=== PATIENT | female | born 1950 | race Caucasian/White ===

== ENCOUNTER 2016-12-03 07:30 | Inpatient (IN) ==
[2016-11-27 15:21] LABS: Basophils # (Auto) 0 K/mcL (0.0-0.3); Basophils % (Auto) 0.5 % (0.0-2.0); Eosinophils # (Auto) 0.2 K/mcL (0.0-0.7); Eosinophils % (Auto) 4.8 % (0.0-7.0); Granulocytes % (Auto) 53.6 % (38.0-78.0); Lymphocytes # (Auto) 1.5 K/mcL (1.5-4.8); Lymphocytes % (Auto) 31.1 % (15.5-49.0); Mean Cell Volume 97.1 fL (80.0-100.0); Mean Corpuscular HGB Conc 33.5 g/dL (31.0-36.0); Mean Corpuscular Hemoglobin 32.5 pg (26.0-34.0); Monocytes # (Auto) 0.5 K/mcL (0.1-0.9); Platelet Count 275 K/mcL (140-440); RBC 3.68 M/mcL (4.00-5.20); Red Cell Distribution Width 13.3 % (11.5-14.5)
[2016-11-27 15:30] LABS: ALT/SGPT 11 U/l (0-40); Albumin/Globulin Ratio 1.7 (1.0-2.3); Alkaline Phosphatase 94 U/L (39-117); Blood Urea Nitrogen 11 mg/dl (8-23)
[2016-11-27 15:31] LABS: Appearance,Urine CLEAR; Bilirubin,Urine NEG (NEG); Color,Urine YELLOW; Glucose,Urine (UA) NEGATIVE (NEG); Leukocyte Esterase,Urine NEG /uL (NEG); Nitrate,Urine NEG (NEG); Protein,Urine NEG (NEG); Specific Gravity,Urine 1.029 (1.000-1.035); Urine Blood NEG mg/dL (<0.03); Urobilinogen,Urine NEG (NEG)
[2016-12-07] MEDS ORDERED: ceFAZolin 1 GM VIAL IV SCH (05:00)
[2016-12-07] MEDS ORDERED: ACETAMINOPHEN 1,000 MG/100 ML BOTTLE IV ONE (08:48)
[2016-12-07] MEDS ORDERED: HYDROmorphone 2 MG/ML SYRINGE IV ONE (09:25)
[2016-12-07] MEDS ORDERED: DEXAMETHASONE 10 MG/ML VIAL IV ONE (09:25)
[2016-12-07] MEDS ORDERED: PROPOFOL 200 MG/20 ML VIAL IV ONE (09:25)
[2016-12-07] MEDS ORDERED: GLYCOPYRROLATE 0.2 MG/ML VIAL IV ONE (09:25)
[2016-12-07] MEDS ORDERED: PHENYLEPHRINE 10 MG/ML VIAL IV ONE (09:25)
[2016-12-07] MEDS ORDERED: LIDOCAINE HCL/PF 100 MG/5 ML SYRINGE IV ONE (09:25)
[2016-12-07] MEDS ORDERED: MIDAZOLAM 5 MG/5 ML VIAL IV ONE (09:25)
[2016-12-07] MEDS ORDERED: KETAMINE 100 MG/ML ML IV ONE (09:25)
[2016-12-07] MEDS ORDERED: SUCCINYLCHOLINE 20 MG/ML ML IV ONE (09:25)
[2016-12-07] MEDS ORDERED: ONDANSETRON 4 MG/2 ML VIAL IV ONE (09:25)
[2016-12-07] MEDS ORDERED: ePHEDrine 50 MG/ML AMPUL IV ONE (09:25)
[2016-12-07] MEDS ORDERED: fentaNYL 250 MCG/5 ML VIAL IV ONE (09:25)
[2016-12-07] MEDS ORDERED: GELATIN SPONGE,ABSORBABLE 1 GM POWDER TOPICAL ONE (10:09)
[2016-12-07] MEDS ORDERED: THROMBIN (BOVINE) 5,000 UNIT VIAL TOPICAL ONE (10:09)
[2016-12-07] MEDS ORDERED: GELATIN SPONGE,ABSORBABLE 1 EACH SPONGE TOPICAL ONE (10:09)
[2016-12-07] MEDS ORDERED: HEPARIN 20,000 UNIT/ML VIAL IR ONE (10:30)
[2016-12-07] MEDS ORDERED: CALCIUM GLUCONATE 4.65 MEQ/10 ML VIAL TOPICAL ONE (10:30)
[2016-12-07] MEDS ORDERED: diphenhydrAMINE 50 MG/ML VIAL IV PRN (12:26)
[2016-12-07] MEDS ORDERED: NALOXONE HCL 0.4 MG/ML VIAL IV PRN ×2 (12:26→12:43)
[2016-12-07] MEDS ORDERED: HYDROmorphone 2 MG/ML SYRINGE IV PRN (12:26)
[2016-12-07] MEDS ORDERED: LACTATED RINGERS 250 ML IV PRN (12:26)
[2016-12-07] MEDS ORDERED: PROMETHAZINE 25 MG/ML VIAL IV PRN (12:26)
[2016-12-07] MEDS ORDERED: ONDANSETRON 4 MG/2 ML VIAL IV PRN (12:26)
[2016-12-07] MEDS ORDERED: MEPERIDINE 25 MG/ML SYRINGE IV PRN (12:26)
[2016-12-07] MEDS ORDERED: BENZOCAINE/MENTHOL 1 LOZENGE PO PRN (12:26)
[2016-12-07] MEDS ORDERED: METHOCARBAMOL 1,000 MG/10 ML VIAL IV PRN (12:26)
[2016-12-07] MEDS ORDERED: PROMETHAZINE 25 MG/ML VIAL IM PRN (12:26)
[2016-12-07] MEDS ORDERED: fentaNYL 100 MCG/2 ML VIAL IV PRN (12:26)
[2016-12-07] MEDS ORDERED: IPRATROPIUM/ALBUTEROL 3 ML AMPUL.NEB NEB PRN (12:26)
[2016-12-07] MEDS ORDERED: MEPERIDINE 50 MG/ML SYRINGE IM PRN (12:26)
[2016-12-07] MEDS ORDERED: ePHEDrine 50 MG/ML AMPUL IV PRN (12:26)
[2016-12-07] MEDS ORDERED: FLUMAZENIL 0.1 MG/ML ML IV PRN (12:26)
[2016-12-07] MEDS ORDERED: LACTATED RINGERS 1,000 ML IV SCH (12:30)
[2016-12-07] MEDS ORDERED: ALPRAZolam 0.5 MG TABLET PO PRN (12:43)
[2016-12-07] MEDS ORDERED: ONDANSETRON ODT 4 MG TABLET SL PRN (12:43)
--- NOTE | 2016-12-07 12:43 | Brief Operative Note ---
Date of procedure: 12/07/16 Pre-op diagnosis: cevical stenosis Post-op diagnosis: same Procedure: acd and f c4-6 Grafts/Implants: Yes (vg2, synthes) Anesthesia: GETA Complications: none Surgeon: Harjinder Chavarria Ladle Liner Helper: Deng Sutherland Estimated blood loss (cc): 20 Specimens Removed/Pathology: none sent Disposition: PACU
[2016-12-07] MEDS: 0.9 % SODIUM CHLORIDE 10 ML SYRINGE IV SCH ×2 (13:55→22:18)
--- NOTE | 2016-12-07 15:37 | XRay Report ---
CLINICAL INFORMATION: Cervical discectomy COMPARISON: None. FINDINGS: Intraoperative lateral cervical spine view labeled #4 shows anterior plate and screws with interbody grafts at the C4-5 and C5-6 levels. Relationships appear anatomic. IMPRESSION: C4-5 and C5-6 anterior fusion changes Interpreted and Authenticated by: Alden Rosario 12/07/16
[2016-12-07] MEDS: ceFAZolin 1 GM VIAL IV SCH (16:23)
[2016-12-07] MEDS: METHOCARBAMOL 750 MG TABLET PO PRN ×2 (16:37→22:18)
--- NOTE | 2016-12-07 17:35 | XRay Report ---
CLINICAL INFORMATION: Discectomy fusion COMPARISON: None. FINDINGS: Lateral cervical spine from the OR labeled #5 shows anterior C4-5 and C5-6 fusion changes provided by anterior plate, screws and interbody grafts. Alignment is anatomic. Moderate C6-7 degenerative disc disease noted IMPRESSION: C4-5 C5-C6 fusion changes - anatomic alignment Interpreted and Authenticated by: Alden Rosario 12/07/16
[2016-12-07] MEDS: oxyCODONE HCL 5 MG TABLET PO PRN (22:17)
[2016-12-08] MEDS ORDERED: ceFAZolin 1 GM VIAL ONE (00:33)
[2016-12-08] MEDS: ceFAZolin 1 GM VIAL IV SCH (00:47)
[2016-12-08] MEDS: METHOCARBAMOL 750 MG TABLET PO PRN ×2 (04:03→12:31)
[2016-12-08] MEDS: oxyCODONE HCL 5 MG TABLET PO PRN ×3 (04:03→13:44)
[2016-12-08] MEDS: 0.9 % SODIUM CHLORIDE 10 ML SYRINGE IV SCH (06:14)
[2016-12-08 07:05] LABS: Blood Urea Nitrogen 9 mg/dl (8-23)
--- NOTE | 2016-12-08 08:57 | Orthopedic Progress Note ---
Subjective Patient information: Note initiated : 12/08/16 at 8:56 am Service Date, if different from initiated Date: [] Patient: Nina Merlos 65 y/o F admitted on 12/07/16 for C4-6 Anterior Cervical Discectomy with Fusion. Chief Complaint: [] Interval history: doing ok today. ate breakfast Objective Vital signs: Vital Signs Temp Pulse Resp BP Pulse Ox 12/08/16 06:57 98.6 F 18 147/76 98 12/08/16 04:00 97.4 F 64 16 143/69 96 12/07/16 23:18 97.8 F 75 18 143/72 94 12/07/16 20:00 97.2 F 74 20 147/69 94 12/07/16 15:45 152/76 98 12/07/16 15:15 139/75 98 12/07/16 14:45 150/77 97 12/07/16 14:30 150/76 97 12/07/16 14:15 153/78 98 12/07/16 14:00 150/78 98 12/07/16 13:49 98.1 F 95 H 10 L 149/69 99 12/07/16 13:43 97.5 F 103 H 12 142/65 98 12/07/16 13:28 97.4 F 84 12 131/52 93 12/07/16 13:23 97.8 F 82 12 127/53 93 12/07/16 13:17 98.2 F 82 12 123/55 93 12/07/16 13:12 98.2 F 82 12 128/55 93 12/07/16 13:08 98.2 F 81 12 119/59 99 12/07/16 13:03 97.8 F 71 18 116/50 99 Intake and Output 12/07/16 12/08/16 12/08/16 21:59 05:59 13:59 Intake Total 0 / 0 200 / 200 360 / 360 Output Total 230 / 230 920 / 920 Balance -230 / -230 -720 / -720 360 / 360 Intake: Oral 0 / 0 200 / 200 360 / 360 Output: Drainage 30 / 30 20 / 20 ANTHONY Drain 30 / 30 20 / 20 Void Amount 200 / 200 900 / 900 Other: Weight 127 lb Intake & Output: Intake & Output 06/09/17 06/10/17 06/10/17 21:59 05:59 13:59 Intake Total 0 / 0 200 / 200 360 / 360 Output Total 230 / 230 920 / 920 Balance -230 / -230 -720 / -720 360 / 360 Weight 127 lb Intake: Oral 0 / 0 200 / 200 360 / 360 Output: Drainage 20 / 20 ANTHONY Drain 20 Void Amount 200 / 200 900 / 900 Incision: Yes healing Incision clean and dry: Yes Dressing: Yes clean, Yes dry, Yes intact Weight bearing status: full Neurological exam IM: Yes alert, Yes normal gait, Yes oriented X3, Yes motor sensory intact, Yes neurovascular intact Extremities exam IM: No calf tenderness, Yes Foot pink and warm, Yes neurovascular intact - Labs CBC & BMP: 12/08/16 05:18 12/08/16 05:18 Labs: Orthopedic Labs 11/27/16 13:55 PT 12.2 INR 0.9 12/08/16 11/27/16 05:18 13:55 Hgb 10.4 L 11.9 L Hct 30.6 L 35.7 L Assessment and Plan (1) Spinal stenosis of cervical region pod 1 s/p acdf anthony drain management, pull later this am pain control neck brace home today Status: Chronic Comment: C5-6
--- NOTE | 2016-12-08 09:00 | Discharge Summary ---
Ortho Discharge - Spine - Patient Instructions Discharge Diet: Regular Diet Activity: activity as tolerated Spine Protocol: Limit bending and stooping. No heavy lifting. Wear brace/collar at all times except when showering and sleeping. Dressing Care: May shower in 2 days Additional Dressing Instructions: May Shower 48 hours post-operative and replace with dry dressing after shower. - Problem Maintenance (1) Spinal stenosis of cervical region Status: Chronic Comment: C5-6 - Follow Up Plan Follow Up Appointments: Harjinder Chavarria MD [Physician] - 12/20/16 9:30 am Disposition: Home, Self-Care Prognosis: Good Rehab Potential: Good I certify that the patient requires SNF services: No Overall status at discharge: patient is progressing back to baseline - Orders For Discharge Prescriptions: Methocarbamol [Robaxin] 750 mg PO TIDP PRN #20 tablet PRN Reason: Muscle Spasm oxyCODONE HCL/ACETAMINOPHEN [Percocet 10-325 mg Tablet] 1 - 2 tab PO Q4HP PRN # 60 PRN Reason: Pain
[2016-12-08] MEDS ORDERED: ACETAMINOPHEN 325 MG TABLET PO PRN (09:05)
--- NOTE | 2016-12-10 08:31 | Operative Note ---
DATE OF OPERATION: 12/07/2016 PREOPERATIVE DIAGNOSIS: Cervical stenosis with advanced degenerative disc disease, C4-C5 and C5-C6. POSTOPERATIVE DIAGNOSIS: Cervical stenosis with advanced degenerative disc disease, C4-C5 and C5-C6. OPERATION PROPOSED: 1. Anterior cervical diskectomy with decompression of neural elements, C4-C5 and C5-C6, anterior interbody fusion at C4-C5 and C5-C6 with application of structural allograft to interspace. 2. Anterior instrumentation C4-C5 and C6. 3. Aspiration of iliac crest for osteoprogenitor cells, bilateral iliac crests. OPERATION PERFORMED: 1. Anterior cervical diskectomy with decompression of neural elements, C4-C5 and C5-C6, anterior interbody fusion at C4-C5 and C5-C6 with application of structural allograft to interspace. 2. Anterior instrumentation C4-C5 and C6. 3. Aspiration of iliac crest for osteoprogenitor cells, bilateral iliac crests. OPERATING SURGEON: Harjinder Chavarria MD. CH[employer]OTH ATTENDANT: Deng Sutherland PA-C. INDICATIONS: This is a lady who has had disabling back and radicular pain. She also has early symptoms of myelopathy who elected to proceed with an anterior cervical diskectomy and fusion C4 to C6. OPERATION IN DETAIL: Informed consent was obtained. She was taken to the operating room where she was provided appropriate anesthetic and prophylactic antibiotics. She was carefully positioned. Her neck and bilateral iliac crests were prepped sterilely. I made a standard anterior approach to the cervical spine. I elevated the longus colli musculature and placed a self-retaining retractor. I then placed a [place] pin. Radiographs obtained confirmed the level of dissection. I then brought in the operating microscope. I incised the annulus additionally at C4-C5. I used a combination of curettes, pituitary rongeurs and high speed bur to debride disc material and worked my way down through the disc space, debriding all disc material. I used the high speed bur to decorticate the endplates. This left a shelf of osteophyte posteriorly. I curetted beneath this osteophyte with a 4.0 Darlin curette. I used 1 and 2 mm Kerrison punches to resect this osteophyte and to decompress the canal. This level actually looked extremely stable almost to the point where it made me think that this might have autofused somewhere in the posterior elements. I then selected an appropriate sized VG2 graft. It was sized to conform. This was soaked in the bone marrow aspirate and impacted into the site prepared for it. I then performed a similar procedure at the C5-C6 level where I removed the disc. I distracted across the disc space with [place] pins and debrided the disc material, used a high speed bur to decorticate the endplates. I resected posterior osteophyte and disc material with a variety of curettes and dissectors. A second VG2 graft which was sized to conform to the space prepared for it was selected. It was also soaked in bone marrow aspirate and then impacted into the site prepared for it. It should be noted that I did aspirate the iliac crest bilaterally, changing needle position after every 10 to 15 mL of aspirate. This was done bilaterally. I passed the aspirate to the back table where it was spun down for osteoprogenitor cells. I did soak my bone graft in this prior to impacting into the disc space. I selected an appropriate sized plate from [employer]. This was held into position. I punched and drilled each of the six holes. I filled the screw holes with the appropriate size screw that was locked to the plate. There was one screw hole that was not filled at the C5 level. The wounds were irrigated thoroughly. I placed additional graft in the graft window. I closed over a deep drain with a 2-0 running in the platysma, a 3-0 inverted deep dermal, and running subcuticular. The procedure was tolerated well. No complications. Estimated blood loss was 20 mL. GDD:[email or web address] Job ID: [id number] Doc ID: [id number] Harjinder Chavarria MD
== END 2016-12-08 15:20 | disposition home or self-care (01) | DRG 473 ==
LOC: MEDSUR 12-07 06:45
PROVIDERS: ADMIT Orthopaedic Surgery Orthopaedic Surgery of the Spine; ATTEND Orthopaedic Surgery Orthopaedic Surgery of the Spine